=== PATIENT | female | born 1985 | race African-American/Black ===

== ENCOUNTER 2016-09-17 20:55 | Emergency (ER) | payer BC ==
[~2016-09-17] VITALS: Ht 157.5 cm; Wt 88.9 kg
[2016-09-17 21:07] VITALS: BP 142/82
--- NOTE | 2016-09-17 21:24 | NUR ---
PATIENT TO ER BED 4
--- NOTE | 2016-09-17 21:28 | NUR ---
PT IS 31/F BIB SELF TO ED WITH C/O VAG BLEEDING,WITH BLOOD CLOTS, 3 HOURS AGO, LMP 2.3.2017, WITH IUD. PT STATES NO MED HX. DENIES D; SKIN IS PINK/WARM/DRY; AAOX4 WITH EVEN AND STEADY GAIT; LUNGS CLEAR BL; HR EVEN AND REGULAR; PT DENIES ANY FEVER, CP, SOB, OR COUGH AT THIS TIME; PATIENT STATES PAIN OF 8/10 AT THIS TIME; VSS; PATIENT POSITIONED FOR COMFORT; HOB ELEVATED; BEDRAILS UP X2; BED DOWN. ER MD MADE AWARE OF PT STATUS.
--- NOTE | 2016-09-17 21:49 | NUR ---
Dr. Quintana evaluating patient at bedside.
[2016-09-17 21:57] VITALS: BP 131/76
--- NOTE | 2016-09-17 21:58 | NUR ---
Patient discharged with v/s stable. Written and verbal after care instructions given and explained. Patient alert, oriented and verbalized understanding of instructions. Ambulatory with steady gait. All questions addressed prior to discharge. ID band removed. Patient advised to follow up with PMD. NO Rx WERE given. Patient educated on indication of medication including possible reaction and side effects. Opportunity to ask questions provided and answered.
== END 2016-09-17 21:58 | disposition home or self-care (01) ==
LOC: MED 20:55
DX: N94.89 Other specified conditions associated with female genital organs and menstrual cycle (principal); R03.0 Elevated blood-pressure reading, without diagnosis of hypertension

== ENCOUNTER 2018-02-13 18:29 | Emergency (ER) | payer BC ==
[~2018-02-13] VITALS: Ht 160 cm; Wt 87.1 kg
[2018-02-13 18:50] VITALS: BP 142/105
--- NOTE | 2018-02-13 19:30 | NUR ---
32/F CAME IN ED, C/O 10 ACHING LOWER BACK PAIN, X3 DAYS, WORSENING TODAY WITH NEW-ONSET THROBBING RADIATION TO R LEG. PT REPORTS HAVING SIMILAR PAIN WITH "PINCHED NERVE PAIN" IN THE PAST. PT REPORTS SLIGHT SUPRAPUBIC CRAMPING FROM HAVING HER PERIOD. PT DENIES CP, SOB, N/V/D, DYSURIA. PT DENIES TRAUMA, NO OBVIOUS ABNORMALITY NOTED. HX CHOLECYSTECTOMY. VS NOTED. ER MD MADE AWARE.
[2018-02-13] MEDS ORDERED: KETOROLAC 60 MG/2 ML VIAL IM ONE (21:30)
--- NOTE | 2018-02-13 23:18 | NUR ---
PT REPORTS 6/10 TIGHTNESS ON LOWER BACK AT THIS TIME, DENIES THROBBING ON R LEG. ALL NEEDS MET AT THIS TIME.
--- NOTE | 2018-02-13 23:21 | NUR ---
CHARTED IN ERROR DISPOSITION, CHARTING UNDONE.
[2018-02-13] MEDS ORDERED: MORPHINE SULFATE 4 MG/ML SYR IM ONE (23:45)
[2018-02-14 01:34] VITALS: BP 119/58
== END 2018-02-14 01:30 | disposition home or self-care (01) ==
LOC: MED 18:29
DX: M54.41 Lumbago with sciatica, right side (principal); Z90.49 Acquired absence of other specified parts of digestive tract
CPT/HCPCS: 81002; 81025; 96372; 99284; J1885; J2270

== ENCOUNTER 2018-03-26 08:06 | Emergency (ER) | payer BC ==
[~2018-03-26] VITALS: Ht 157.5 cm; Wt 86.2 kg
[2018-03-26 08:15] VITALS: BP 158/100
--- NOTE | 2018-03-26 08:15 | NUR ---
patient ambulated to rm 9 with steady gait
--- NOTE | 2018-03-26 08:20 | NUR ---
bib significant other with c/o vomitting since Sunday but stopped early today. Patient sts vomitting "yellow liquid fluid or whatever patient ate". Patient denies any abd pain, ,cough, or diarrhea. Patient also reports of non provoked constant sternal chest pain that started yesterday and mid lower back.SKIN IS PINK/WARM/DRY; AAOX4 WITH EVEN AND STEADY GAIT; LUNGS CLEAR BL; HR EVEN AND REGULAR; PT DENIES ANY FEVER, SOB, OR COUGH AT THIS TIME; PATIENT STATES PAIN OF 8/10 AT THIS TIME; VSS; PATIENT POSITIONED FOR COMFORT; HOB ELEVATED; BEDRAILS UP X2; BED DOWN. ER MD MADE AWARE OF PT STATUS.
[2018-03-26] MEDS ORDERED: FAMOTIDINE 20 MG TAB PO ONE (08:40)
[2018-03-26] MEDS ORDERED: ACETAMINOPHEN EXTRA STRENGTH 500 MG TAB PO ONE (08:40)
[2018-03-26] MEDS ORDERED: ONDANSETRON 4 MG ODT PO ONE (08:40)
[2018-03-26] MEDS ORDERED: KETOROLAC 60 MG/2 ML VIAL IM ONE (09:35)
[2018-03-26] MEDS ORDERED: traMADol 50 MG TAB PO ONE (10:15)
[2018-03-26 10:33] VITALS: BP 138/89
--- NOTE | 2018-03-26 10:34 | NUR ---
Patient discharged with v/s stable. Written and verbal after care instructions given and explained. Patient alert, oriented and verbalized understanding of instructions. Ambulatory with steady gait. All questions addressed prior to discharge. ID band removed. Patient advised to follow up with PMD. Rx of PEPCID,ZOFRAN AND TRAMADOL given. Patient educated on indication of medication including possible reaction and side effects. Opportunity to ask questions provided and answered.
== END 2018-03-26 10:34 | disposition home or self-care (01) ==
LOC: MED 08:06
DX: K29.70 Gastritis, unspecified, without bleeding (principal); M54.40 Lumbago with sciatica, unspecified side; R03.0 Elevated blood-pressure reading, without diagnosis of hypertension; Z90.49 Acquired absence of other specified parts of digestive tract
CPT/HCPCS: 81002; 81025; 96372; 99284; J1885; S0119